=== PATIENT | female | born 1985 | race Caucasian/White ===

== ENCOUNTER 2020-07-20 00:37 | Emergency (ER) | payer BC ==
[~2020-07-20] VITALS: Ht 170.2 cm; Wt 68.0 kg
--- NOTE | 2020-07-20 01:58 | NUR ---
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
--- NOTE | 2020-07-20 02:17 | NUR ---
PT C/O OF CHEST PAIN, PALPITATIONS, SWEATING, AND ABDOMINAL PAIN. REPORTS DRINKING A 12 PACK A DAY AND SOME VODKA. STATES COMING TO ER BECAUSE SHE WANTS TO DETOX FROM ALCOHOL. LAST DRINK 2200 ATTACHED TO CARD/SP02/BP MONITORS. VSS WITH SLIGHTLY ELEVATED HE. AT BEDSIDE. BED IN LOW POSITION, RAILS ENGAGED. CALL LIGHT WITHIN REACH. WCTM
[2020-07-20] MEDS ORDERED: THIAMINE 100MG TABLET PO ONE (02:30)
[2020-07-20] MEDS ORDERED: SODIUM CHLORIDE 0.9% 1,000ML IVBOLUS ONE (02:30)
[2020-07-20] MEDS ORDERED: ONDANSETRON 2MG/ML, 2ML IVPush ONE (02:30)
[2020-07-20] MEDS ORDERED: SODIUM CHLORIDE FLUSH 10ML SYR IVF ONE (02:30)
[2020-07-20 02:41] LABS: BASOPHILS % (AUTO) 1 % (0-1); EOSINOPHILS % (AUTO) 1 % (1-7); LYMPHOCYTES % (AUTO) 34 % (22-44); MEAN CORPUSCULAR HEMOGLOBIN 33.9 pg (27.0-34.8); MEAN CORPUSCULAR HGB CONC 34.2 g/dL (32.4-35.8); MEAN PLATELET VOLUME 8.3 fL (7.4-10.4); MONOCYTES % (AUTO) 10 % (2-9); NEUTROPHILS % (AUTO) 54 % (42-75); PLATELET COUNT 199 x10^3/uL (130-400); RED BLOOD COUNT 4.33 x10^6/uL (3.82-5.3); RED CELL DISTRIBUTION WIDTH 14.4 % (9.6-15.2)
[2020-07-20] MEDS ORDERED: THIAMINE 100MG TABLET ONE (02:41)
[2020-07-20] MEDS ORDERED: ONDANSETRON 2MG/ML, 2ML ONE (02:41)
[2020-07-20 02:49] LABS: ALANINE AMINOTRANSFERASE 78 U/L (12-78); ALBUMIN 3.9 g/dL (3.4-5.0); ANION GAP 4 mmol/L (5-15); CALCIUM 8.4 mg/dL (8.5-10.1); CHLORIDE 112 mmol/L (98-107); CREATININE 0.67 mg/dL (0.55-1.02)
[2020-07-20 02:53] LABS: ALKALINE PHOSPHATASE 42 U/L (45-117); BILIRUBIN,TOTAL 0.2 mg/dL (0.2-1.0); TOTAL PROTEIN 7.5 g/dL (6.4-8.2)
[2020-07-20 04:08] VITALS: BP 131/77
--- NOTE | 2020-07-20 06:17 | NUR ---
LATE ENTRY DUE TO PT CARE. Patient/Caregiver given discharge instructions and they have confirmed that they understand the instructions. Patient ambulatory with steady gait. NAD, all questions answered appropriately, denies additional needs at this time. No personal belongings left in room after discharge. GAVE PT REFFERALS FOR ETOH REHAB
--- NOTE | 2020-07-20 07:12 | NUR ---
CIWA DONE ON WRONG PT. TIME CORRECTED AND CIWA NOW CORRECT FOR THIS PT.
== END 2020-07-20 04:44 ==
LOC: ED 04:27
DX: F10.220 Alcohol dependence with intoxication, uncomplicated (principal); R00.2 Palpitations; Z72.9 Problem related to lifestyle, unspecified; F17.210 Nicotine dependence, cigarettes, uncomplicated; Y90.0 Blood alcohol level of less than 20 mg/100 ml
CPT/HCPCS: 36415; 80053; 80320; 84703; 85025; 93005; 96361; 96374; 99284; 99406; J2405; J7030; G0480